=== PATIENT | male | born 1990 | race Caucasian/White ===

== ENCOUNTER 2018-09-16 14:55 | Emergency (ER) | payer OTHER ==
[~2018-09-16] VITALS: Ht 175.3 cm; Wt 84.1 kg
[2018-09-16] MEDS ORDERED: ROBA500T PO (16:53)
[2018-09-16] MEDS ORDERED: IBUP-1022 PO (16:53)
[2018-09-16] MEDS: METHOCARBAMOL 500 MG TAB PO ONE (17:00)
[2018-09-16] MEDS: IBUPROFEN 600 MG TAB PO ONE (17:01)
[2018-09-16 17:04] VITALS: BP 141/69
== END 2018-09-16 17:07 | disposition home or self-care (01) ==
LOC: M ED 14:55
DX: S39.012A Strain of muscle, fascia and tendon of lower back, initial encounter (principal); X58.XXXA Exposure to other specified factors, initial encounter; Y92.89 Other specified places as the place of occurrence of the external cause; M62.830 Muscle spasm of back